=== PATIENT | male | born 1965 | race Two or more races ===

== ENCOUNTER 2019-04-02 00:01 | Emergency (ER) | payer MEDICAID, OTHER ==
[~2019-04-02] VITALS: Ht 177.8 cm; Wt 99.8 kg
[~2019-04-02 00:01] MED LIST: METF-370 PO
[2019-04-02 00:56] VITALS: BP 132/87
== END 2019-04-02 01:45 | disposition home or self-care (01) ==
LOC: ER 00:03
DX: R10.9 Unspecified abdominal pain (principal); Z88.0 Allergy status to penicillin